=== PATIENT | male | born 1985 | race Caucasian/White ===

== ENCOUNTER 2016-12-07 12:28 | Outpatient (CLI) | payer OTHER ==
[~2016-12-07 12:28] MED LIST: GADOPENTETATE DIMEGLUMINE 5 ML VIAL IVP ONE; IOTHALAMATE MEGLUMINE 50 ML VIAL ONE; LIDOCAINE 1% 10 ML MDV ONE
[2016-12-07] MEDS ORDERED: GADOPENTETATE DIMEGLUMINE 5 ML VIAL IVP ONE (13:37)
[2016-12-07] MEDS ORDERED: IOTHALAMATE MEGLUMINE 50 ML VIAL IVP ONE (13:37)
[2016-12-07] MEDS ORDERED: LIDOCAINE 1% 10 ML MDV SUBQ ONE (13:37)
--- NOTE | 2016-12-07 15:31 | MRI Report ---
EXAM: RIGHT SHOULDER MRI ARTHROGRAM WITH CONTRAST EXAM DATE: 12/07/2016 02:11 PM. CLINICAL HISTORY: RT ANTERIOR SHOULDER PAIN DUE TO THROWING INJURY IN AUGUST 2016, EVAL FOR SLAP LESION . COMPARISON: None. TECHNIQUE: Multiplanar, multisequence T1-weighted and fluid-sensitive sequences of the shoulder after an arthrographic injection of dilute gadolinium, dictated under a separate exam. Other: None. FINDINGS: Images are degraded by patient motion artifacts. Acromioclavicular Region: The acromion is unipartite type I without downsloping. Mild osteoarthritis of the acromioclavicular joint with quite extensive edema in the distal clavicle, without significant effusion, joint separation or significant undersurface hypertrophic spur. The acromioclavicular, cor acoacromial and coracoclavicular ligaments are intact. There is no contrast or fluid in the subacromi al/subdeltoid bursa. Glenohumeral Region: No subluxation. No loose bodies. The articular cartilage is unremarkable. The gl enohumeral ligaments and joint capsule are unremarkable. Bone Marrow: No fracture, marrow edema or bone lesions. Labrum: The labrum is unremarkable. Biceps Tendon: The long head of the biceps tendon, biceps anchor and biceps wanda are intact. Musculature/Rotator Cuff: Mild tendinosis of the infraspinatus without tear. The subscapularis, supra spinatus and teres minor tendons are intact. No edema or fatty atrophy. Other: The subcutaneous tissues are unremarkable. IMPRESSION: 1. Mild tendinosis of the infraspinatus without tear. 2. 3. Mild osteoarthritis of the acromioclavicular joint with quite extensive edema in the distal clavic le which can be reactive to degenerative change, or mechanical stress or due to contusion. 4. No other abnormalities demonstrated. The labrum is intact. [facility] MUSCULOSKE[facility] RADIOLOG[facility] SECTION Referring Provider Line: [phone] SITE ID: [id number]
--- NOTE | 2016-12-07 16:25 | XRAY Report ---
RIGHT SHOULDER ARTHROGRAM: 12/07/2016 No comparison. INDICATION: Pre-MRI arthrogram. TECHNIQUE - FINDINGS: Risks and benefits of the procedure were discussed with the patient and he didi ired to proceed. A standard timeout was performed which verified the patient's name, date of and correct locatio n, right shoulder. The patient was prepped and draped in normal sterile fashion. Six mL of 1% lidocaine were used for local anesthesia. The right shoulder joint was accessed using a 20-gauge spinal needle, and under fluoroscopic guidance 12 mL of solution was injected into the right glenohumeral joint. The solution contained 10 mL Conr ay, 10 mL 1% lidocaine, and 0.1 mL Gadovist. There was minimal blood loss. There were no complications. IMPRESSION: SUCCESSFUL ARTHROGRAM. THE PATIENT WAS DISCHARGED AND ESCORTED TO THE MRI MACHINE. JOB #: [id number] EXT JOB #:[id number]
== END 2016-12-07 12:29 | disposition home or self-care (01) ==
LOC: DI 12:28
PROVIDERS: ATTEND Physician Assistant
DX: M19.011 Primary osteoarthritis, right shoulder (principal); M67.911 Unspecified disorder of synovium and tendon, right shoulder
CPT/HCPCS: 23350; 73222; 77002; Q9961